=== PATIENT | female | born 1990 | race Caucasian/White ===

== ENCOUNTER → 2024-08-09 13:31 | Outpatient (REF) | payer OTHER, SELFPAY | LOC: PNTC 13:31 | PROVIDERS: ATTENDING PHYSICIAN Obstetrics & Gynecology | DX: Z36.0 Encounter for antenatal screening for chromosomal anomalies (principal); Z36.82 Encounter for antenatal screening for nuchal translucency | CPT/HCPCS: 76801; 76813 ==

== ENCOUNTER → 2024-10-03 14:41 | Outpatient (REF) | payer OTHER, SELFPAY | LOC: PNTC 14:41 | PROVIDERS: ATTENDING PHYSICIAN Obstetrics & Gynecology | DX: Z34.90 Encounter for supervision of normal pregnancy, unspecified, unspecified trimester (principal) | CPT/HCPCS: 76805; 76817 ==

== ENCOUNTER → 2024-11-15 09:44 | Outpatient (REF) | payer OTHER, SELFPAY | LOC: PNTC 09:44 | PROVIDERS: ATTENDING PHYSICIAN Obstetrics & Gynecology | DX: O43.199 Other malformation of placenta, unspecified trimester (principal) | CPT/HCPCS: 76816 ==

== ENCOUNTER 2025-02-24 07:53 | Inpatient (IN) | payer OTHER, SELFPAY ==
[2025-02-24] MEDS: LR 1000 IV ×3 (08:00→18:48)
[2025-02-24 08:04] VITALS: BP 129/76; BMI 26.4
[2025-02-24 09:41] LABS: Hematocrit 36.0 % (37.0-47.0); Hemoglobin 11.7 g/dL (12.0-16.0); Mean Corp Hgb Conc. 32.5 g/dL (33.0-37.0); Mean Corpuscular Volume 87.0 fL (81.0-99.0); Nucleated Red Blood Cells % 0 %; Platelet Count 233 10^3/uL (130-400); Red Cell Dist. Width 17.2 % (11.5-14.5)
[2025-02-24] MEDS: PENICILLIN 110 UNITS IV (10:16)
[2025-02-24] MEDS: PENICILLIN 55 UNITS IV ×2 (13:38→18:48)
[2025-02-24] MEDS: PITOCIN 30 UNITS/NSS 500 ML IV (14:30)
[2025-02-24] MEDS: FENTANYL/BUPIVACAINE 100 EPIDURAL (17:48)
[2025-02-24] MEDS: SUBLIMAZE 100 MCG EPIDURAL (17:48)
[2025-02-24] MEDS: MOTRIN 600 MG PO (23:50)
[2025-02-25] MEDS: TYLENOL 650 MG PO ×4 (00:37→17:16)
[2025-02-25 04:42] LABS: Hematocrit 28.5 % (37.0-47.0); Hemoglobin 9.5 g/dL (12.0-16.0)
[2025-02-25] MEDS: MOTRIN 600 MG PO ×2 (07:13→17:16)
[2025-02-25] MEDS: FEOSOL 325 MG PO (07:13)
[2025-02-25] MEDS: COLACE 100 MG PO ×2 (07:13→19:26)
[2025-02-25] MEDS: PRENATAL PLUS 1 TABLET PO (07:18)
[2025-02-26] MEDS: MOTRIN 600 MG PO ×2 (00:42→08:14)
[2025-02-26] MEDS: TYLENOL 650 MG PO ×2 (00:42→08:13)
[2025-02-26] MEDS: FEOSOL 325 MG PO (08:11)
[2025-02-26] MEDS: PRENATAL PLUS 1 TABLET PO (08:11)
[2025-02-26] MEDS: COLACE 100 MG PO (08:12)
[2025-02-28 13:53] LABS: Syphilis/T. pallidum Ab Reflex Negative (Negative)
== END 2025-02-26 13:13 | disposition home or self-care (01) | DRG 807 ==
LOC: LDRP 07:53
PROVIDERS: ADMITTING PHYSICIAN Obstetrics & Gynecology
PROC: 3E033VJ Introduction of Other Hormone into Peripheral Vein, Percutaneous Approach (ICD-10-PCS; 2025-02-24)
PROC: 10E0XZZ Delivery of Products of Conception, External Approach (ICD-10-PCS; 2025-02-24)
DX: O48.0 Post-term pregnancy (principal); Z37.0 Single live birth; Z3A.41 41 weeks gestation of pregnancy; O99.824 Streptococcus B carrier state complicating childbirth; O69.81X0 Labor and delivery complicated by cord around neck, without compression, not applicable or unspecified
CPT/HCPCS: 36415; 85014; 85018; 85025; 86780; 86850; 86900; 86901